=== PATIENT | female | born 1970 | race Caucasian/White ===

== ENCOUNTER 2021-10-24 11:02 | Outpatient (CLI) | payer BC, OTHER | END 2021-10-24 11:03 | disposition home or self-care (01) | LOC: CSHMAMMO 11:02 | PROVIDERS: ATTEND Family Medicine | DX: Z12.31 Encounter for screening mammogram for malignant neoplasm of breast (principal) | CPT/HCPCS: 77063; 77067 ==

== ENCOUNTER 2022-02-22 21:54 | Inpatient (IN) | payer BC ==
[~2022-02-22 21:54] MED LIST: Iopamidol 370 76% 100 ML VIAL ONE
[2022-02-22 22:36] LABS: Hemoglobin 13.8 g/dL (12.0-15.5); MDiff Complete? YES; Mean Corpuscular HGB CONC 34.9 g/dL (32.0-36.0); Mean Corpuscular Hemoglobin 31.9 pg (27.0-33.0); Mean Corpuscular Volume 91.4 fl (81.6-98.3); Mean Platelet Volume 9.4 fl (7.4-10.4); Platelet Count 231 10x3/uL (150-450); RBC Distribution Width 12.6 % (11.5-14.5); Red Blood Cell (RBC) Count 4.32 10x6/uL (3.90-5.03); White Blood Cell (WBC) Count 5.9 10x3/uL (3.5-10.5)
[2022-02-22 22:37] LABS: ALT (SGPT) 23 U/L (8-55); AST (SGOT) 19 U/L (5-34); Albumin 4.8 g/dL (3.5-5.0); Alcohol Less than 10 mg/dL (Less than 10); Alkaline Phosphatase 73 U/L (40-110); Anion Gap 15 mmol/L (10-20); BUN (Urea Nitrogen) 12 mg/dL (7.0-18.7); Bilirubin, Total 0.4 mg/dL (0.2-1.2); Calc. Creatinine Clearance 0 mL/min (70-130); Calcium 9.5 mg/dL (7.8-10.44); Carbon Dioxide 23 mmol/L (22-29); Chloride 102 mmol/L (98-107); Globulin 2.6 g/dL (2.4-3.5); Glucose 131 mg/dL (70-105); Potassium 3.6 mmol/L (3.5-5.1); Protein, Total 7.4 g/dL (6.0-8.3); Sodium 136 mmol/L (136-145)
[2022-02-22 22:49] LABS: Eosinophils 2 % (0-10); Lymphocytes 60 % (21-51); Monocytes 6 % (0-10); Neutrophil 31 % (42-75)
[2022-02-22 22:50] LABS: Platelet Morphology Comment Appears Adequate; RBC Morphology Normal
[2022-02-23] MEDS ORDERED: Ondansetron PF 4 MG/2 ML Vial IVP PRN (00:37)
[2022-02-23 01:25] LABS: SARS-CoV-2 NAA Rapid Test Not Detected (NotDetected)
[2022-02-23] MEDS: Sodium Chloride 0.9% 1,000 ML IV SCH ×2 (01:45→16:44)
[2022-02-23] MEDS: Acetaminophen 325 MG TAB PO PRN ×2 (03:51→20:00)
[2022-02-23 05:45] VITALS: BMI 24.6
[2022-02-23] MEDS: Pantoprazole 40 MG VIAL IVP SCH (08:59)
[2022-02-23] MEDS: HumaLOG 300 UNITS/3 ML VIAL SC PRN (17:25)
[2022-02-23] MEDS ORDERED: Dextrose 5% in Water 1,000 ML IV PRN (17:30)
[2022-02-23] MEDS ORDERED: Dextrose 50% Abboject 50 ML SYRINGE IVP PRN (17:30)
[2022-02-23] MEDS: Atorvastatin Calcium 40 MG TAB PO SCH (20:02)
[2022-02-24 00:17] LABS: BHCG - Serum Negative (NEGATIVE); Pregs Control Background? CLEAR/WHITE (CLR/WHITE); Pregs Control Bar Appear? YES (CONTROL BAR)
[2022-02-24 00:20] LABS: INR-International Normal Ratio 0.9; PTT 25.1 sec (22.0-33.0)
[2022-02-24] MEDS: Acetaminophen 325 MG TAB PO PRN ×3 (01:01→21:10)
[2022-02-24] MEDS ORDERED: Aspirin 81 mg Enteric Coated Tablet PO SCH (02:45)
[2022-02-24] MEDS: Sodium Chloride 0.9% 1,000 ML IV SCH ×2 (03:03→17:22)
[2022-02-24] MEDS: Aspirin 81 mg Enteric Coated Tablet PO SCH (08:11)
[2022-02-24] MEDS: Pantoprazole 40 MG VIAL IVP SCH (08:11)
[2022-02-24] MEDS: HumaLOG 300 UNITS/3 ML VIAL SC PRN ×2 (11:44→17:23)
[2022-02-24] MEDS: Atorvastatin Calcium 40 MG TAB PO SCH (21:09)
[2022-02-25] MEDS: Aspirin 81 mg Enteric Coated Tablet PO SCH (09:28)
[2022-02-25] MEDS: Sodium Chloride 0.9% 1,000 ML IV SCH ×2 (09:28→17:26)
[2022-02-25 10:26] LABS: ANA Symphony (Qualitative) Negative (Negative); ANA Symphony (Quantitative) 0.1 Ratio (< 0.7 Negative); dsDNA IgG Antibody Less than 0.5 IU/mL (<10 Negative)
[2022-02-25] MEDS: HumaLOG 300 UNITS/3 ML VIAL SC PRN (17:27)
[2022-02-25] MEDS ORDERED: Metoclopramide HCl 10 MG/2 ML VIAL IVP SCH (19:30)
[2022-02-25] MEDS ORDERED: Ketorolac Tromethamine 30 MG/ML VIAL IVP SCH (19:30)
[2022-02-25] MEDS ORDERED: diphenhydrAMINE 50 MG/ML VIAL IVP SCH (19:30)
[2022-02-25] MEDS: Atorvastatin Calcium 40 MG TAB PO SCH (20:13)
[2022-02-26] MEDS: Aspirin 81 mg Enteric Coated Tablet PO SCH (09:43)
[2022-02-26] MEDS: Sodium Chloride 0.9% 1,000 ML IV SCH (09:43)
[2022-02-26 16:12] VITALS: BP 101/58; TEMP 97.9
== END 2022-02-26 18:48 | disposition home health service (06) | DRG 62 ==
LOC: CSHERS 21:54 → CSHIMCU 02-23 00:51 → CSHTELE 02-24 11:22
PROVIDERS: ADMIT Family Medicine; ATTEND Internal Medicine
DX: I63.9 Cerebral infarction, unspecified (principal); G81.94 Hemiplegia, unspecified affecting left nondominant side; E11.9 Type 2 diabetes mellitus without complications; E78.5 Hyperlipidemia, unspecified; I10 Essential (primary) hypertension; R29.810 Facial weakness; R20.2 Paresthesia of skin; G31.89 Other specified degenerative diseases of nervous system; G43.909 Migraine, unspecified, not intractable, without status migrainosus; M48.061 Spinal stenosis, lumbar region without neurogenic claudication; R29.703 NIHSS score 3; Z20.822 Contact with and (suspected) exposure to COVID-19; Z79.84 Long term (current) use of oral hypoglycemic drugs; Z79.4 Long term (current) use of insulin; Z79.899 Other long term (current) drug therapy; Z98.890 Other specified postprocedural states; Z98.891 History of uterine scar from previous surgery; Z83.3 Family history of diabetes mellitus; Z82.49 Family history of ischemic heart disease and other diseases of the circulatory system; Z83.438 Family history of other disorder of lipoprotein metabolism and other lipidemia; Z84.89 Family history of other specified conditions; Z72.89 Other problems related to lifestyle; Z80.9 Family history of malignant neoplasm, unspecified
CPT/HCPCS: 36415; 36416; 37195; 70450; 70496; 70498; 70551; 71045; 72141; 72146; 72148; 80053; 80061; 80307; 83090; 84484; 84703; 85025; 85610; 85652; 85730; 86038; 86225; 93005; 93306; 99292; C9113; J1200; J1815; J1885; J2765; J2997; J7050; Q9967; U0002

== ENCOUNTER 2022-05-08 11:17 | Outpatient (CLI) | payer BC ==
[~2022-05-08 11:17] MED LIST changes: +Gadobenate Dimeglumine 529 MG/1 ML (20ML VIAL) ONE; -Iopamidol 370 76% 100 ML VIAL ONE
== END 2022-05-08 11:18 | disposition home or self-care (01) ==
LOC: CSHMRI 11:17
PROVIDERS: ATTEND Nurse Practitioner Adult Health
DX: R20.0 Anesthesia of skin (principal)
CPT/HCPCS: 70553; A9577